=== PATIENT | male | born 1990 | race Caucasian/White ===

== ENCOUNTER 2019-04-05 18:22 | Emergency (ER) | payer OTHER, SELFPAY ==
[2019-04-05] VITALS (29 sets, daily range): BP systolic 124–150; BP diastolic 78–92; PULSE 76–87; RESP 12–24; TEMP 36.7; O2SAT 95–99
--- NOTE | 2019-04-05 18:43 | ED.GENADUL_ITS ---
Discharge Plan Disposition Patient Disposition: HOME Condition: Improving Discharge Details Chief Complaint: Chest Pain Clinical Impression: GERD (gastroesophageal reflux disease) Primary Care Provider: PRATIBHA BROWN ED Provider: Jasvir Elizalde Home Meds and New Rx's Prescriptions: New ranitidine HCl [Zantac] 150 mg tablet 150 mg PO BID Qty: 20 RF: 0 Discontinued ibuprofen 200 MG tablet 600 mg PO PRN PRNRF: 0 Discharge Instructions Instructions: Gastroesophageal Reflux Disease (ED) Additional Instructions: Please stop taking ibuprofen and if needed you may take Tylenol as needed for any further discomfort for your dental procedure. Please return immediately for any new or significant worsening of symptoms otherwise follow-up with your primary care provider for reassessment of your chest pain. Stand Alone Forms: Work Release Referrals: PRATIBHA BROWN [Primary Care Provider] - Discharge Data Discharge Date/Time-TO BE ENTERED AT DEPARTURE: 04/05/19 23:25 Medical Decision Making Patient presenting the emergency department for chief complaint of chest pain. Patient states that this started yesterday around noon and has persisted since. He did state that he took some Pepto-Bismol thinking it may be gastritis which provided some relief but has been persistent since. He does report that he recently did have a dental procedure performed on Saturday and has been taking 800 mg of ibuprofen every 6 hours [id number] to help with pain control. Patient denies any pain or discomfort at this time but just states a dull aching pressure in the center of his chest. Physical exam is unremarkable, patient is stable nontoxic in appearance, not diaphoretic no specific findings noted. Plan to check labs including EKG and pending results patient given Zantac and lidocaine /Maalox. 183 Review of EKG with attending physician Dr. Adelso Ramirez shows sinus rhythm, rate of 83, nonspecific ST changes noted in 3 and aVF but no STEMI criteria is met or noted EKG is otherwise nondiagnostic. Review of initial labs show no leukocytosis and unremarkable CBC, CMP shows a slightly low potassium, elevated anion gap, creatinine 1.41, and mildly low calcium. Initial troponin is negative and otherwise nondiagnostic labs. Review of chest x-ray shows no acute findings noted. Patient reassessed and did state some improvement of symptoms after medication was given. Given patient's recent wisdom teeth removal with taking ibuprofen on a scheduled basis and high dose with low p.o. intake is causing some gastritis. Repeat EKG reviewed with Dr. Wilkinson 2300 shows sinus rhythm, rate of 77, continues with nonspecific ST changes in V3 and somewhat normalized and aVF but otherwise nondiagnostic, no STEMI. Patient again reassessed and has no further symptoms. Given this I feel that this is more likely GERD/gastritis secondary to ibuprofen usage. Patient placed up on ranitidine given some nonspecific EKG changes patient was strongly encouraged to follow-up with his primary care provider for further reassessment but otherwise I do feel the patient is able to be safely discharged. After discussion of diagnosis and plan of care patient has no further needs, questions, or concerns and states clear understanding to return to the emergency department for any worsening symptoms. HPI General Mode of arrival: ambulatory . Date/Time Provider Initiated Documentation: 04/05/19 18:23 . Limitations to Documentation: no limitations . Information obtained by: patient, family and RN notes reviewed . History of Present Illness 28 year old M presents to the emergency department with the chief complaint of Chest pain, described as moderate, with intensity rated at 7. Quality is described as dull and other (Pressure), and is localized to the chest. Patient started experiencing this hour(s) (30) No relieving factors improve symptom(s), No exacerbating factors reported . Patient notes no other symptoms.. Patient did receive the following treatments prior to arrival, none Related Data Home Medications Medication Instructions Recorded Confirmed ranitidine HCl [Zantac] 150 mg PO BID #20 tab 04/05/19 Previous Rx's Medication Instructions Recorded ranitidine HCl [Zantac] 150 mg PO BID #20 tab 04/05/19 Allergies Allergy/AdvReac Type Severity Reaction Status Date / Time No Known Allergies Allergy Unverified 04/05/19 18:31 General Stated Complaint: Chest Pain ANGELA: 3 Review of Systems Constitutional Constitutional: Denies chills, Denies fever(s) and Denies malaise Cardiovascular Cardiovascular: Reports as per HPI, Reports chest pain, Denies chest pain with activity, Denies syncope, Denies irregular heart rhythm, Denies palpitations and Denies dyspnea Respiratory Respiratory: Denies cough, Denies hemoptysis and Denies dyspnea Gastrointestinal Gastrointestinal: Denies abdominal pain, Reports belching, Reports heartburn, Denies nausea and Denies vomiting Neurologic Neurologic: Denies syncope Psychiatric Psychiatric: Denies anxiety Endocrine Endocrine: Denies cold intolerance, Denies heat intolerance and Denies palpitations [facility] Social History Smoking/Tobacco Use Status: Never Drug use: Never Do you feel safe at home: Yes Exam Const General: cooperative, healthy appearing, comfortable, no acute distress, not diaphoretic and not ill appearing Nutritional Appearance: average body habitus Orientation: alert, awake and oriented x3 Limitations: mental status not altered Neck Neck: normal visual inspection, full ROM, trachea midline, supple and no anterior neck swelling Thyroid: thyroid normal Carotids: normal carotid upstroke and no bruits Chest Chest: normal inspection of the chest Resp Effort & Inspection: normal respiratory effort and able to speak in complete sentences Auscultation: clear to auscultation bilaterally Cardio Jugular venous pressure: no JVD Palpation: normal PMI Rate: regular rate Rhythm: regular rhythm Heart Sounds: S1 normal, S2 normal, no click, no gallops, no murmurs and no rubs Bruits: no abdominal aortic bruits and no carotid bruits Pulses: radial pulses present bilaterally 2+ GI Inspection: normal to inspection Palpation: soft, no aortic enlargement, no pulsatile masses and nontender Auscultation: normal bowel sounds Skin General skin exam: no rashes or lesions noted Neuro General: alert, awake, oriented x3, tone normal and moves all extremities Course Vital Signs Vital signs: Vital Signs Temperature 36.7 C 04/05/19 18:25 Pulse 87 04/05/19 18:25 Respiratory Rate 04/05/19 18:25 Blood Pressure 150/88 H 04/05/19 18:25 Pulse Oximetry 97 04/05/19 18:25 Temperature 36.7 C 04/05/19 18:25 Temperature Source Skin 04/05/19 18:25 Pulse 87 04/05/19 18:25 Respiratory Rate 04/05/19 18:25 Respiratory Effort Non-Labored 04/05/19 18:30 Blood Pressure 150/88 H 04/05/19 18:25 Blood Pressure Position Sitting 04/05/19 18:25 Pulse Oximetry 97 04/05/19 18:25 Oxygen Delivery Method Room Air 04/05/19 18:25 Oxygen Flow Rate 0 04/05/19 18:25
[2019-04-05 18:49] LABS: Abs Immature Grans 0.01 k/cumm (0.0-0.09); Absolute Basophil Count 0.03 k/cumm (0.0-0.2); Absolute Eosinophil Count 0.01 k/cumm (0.0-0.7); Absolute Lymphocyte Count 1.28 k/cumm (1.2-3.4); Absolute Monocyte Count 1.03 k/cumm (0.11-0.7); Absolute Neutrophil Count 3.33 k/cumm (1.2-6.7); Basophils % 0.5; Eosinophils % 0.2; HCT 45.2 % (40.0-50.0); HGB 15.6 g/dL (13.5-17.5); Immature Grans % 0.2; Lymphocytes % 22.5; Mean Corp. HGB Concentration 34.5 g/dL (32.0-36.0); Mean Corpuscular Hemoglobin 29.3 pg (27.0-33.0); Mean Corpuscular Volume 84.8 fL (80-95); Mean Platelet Volume 9.9 fL (8.0-11.0); Monocytes % 18.1; Neutrophils % 58.5; Platelet Count 196 x1000/uL (130-400); RBC 5.33 m/cumm (4.50-6.00); RBC Distribution Width 12.5 % (11.8-14.1); White Blood Cell Count 5.69 k/cumm (4.4-10.8)
[2019-04-05 19:06] LABS: ALT 29 U/L (16-63); AST 15 U/L (15-37); Alkaline Phosphatase 63 U/L (46-116); Anion Gap 12.2 mmol/L (3-11); BUN 14 mg/dL (7-18); Bilirubin, Total 0.7 mg/dL (0.2-1.0); CO2 27.8 mmol/L (21.0-32.0); CREATININE 1.41 mg/dL (0.70-1.30); Calcium 8.4 mg/dL (8.5-10.1); Chloride 99 mmol/L (98-107); Estimated GFR 59.02 (mL/min/1.73m2); Glucose 97 mg/dL (70-100); Magnesium 1.9 mg/dL (1.8-2.4); Potassium 3.2 mmol/L (3.5-5.1); Sodium 139 mmol/L (136-145); Total Protein 7.7 g/dL (6.4-8.2)
[2019-04-05 19:09] LABS: Troponin I < 0.05 ng/mL (0.00-0.06)
--- NOTE | 2019-04-05 19:45 | DI.RAD_ITS ---
EXAM: XR CHEST 2V PA LATERAL CLINICAL HISTORY: chest pain. TECHNIQUE: 2D digital imaging was performed. COMPARISON: No exams were available for comparison FINDINGS: LUNGS: Clear. No pleural abnormality seen. HEART: Normal. MEDIASTINUM: Normal. OTHER FINDINGS:Normal. IMPRESSION: No acute pulmonary findings.
[2019-04-05] MEDS: Normal Saline 1,000 ML 1000 ML IV (20:01)
[2019-04-05] MEDS: POTASSIUM CHLORIDE 20 MEQ, POTASSIUM CHLORIDE 10 MEQ 30 MEQ PO (20:02)
--- NOTE | 2019-04-05 20:19 | DI.VRAD_ITS ---
PROCEDURE INFORMATION: Exam: XR Chest, 2 Views Exam date and time: 04/05/2019 6:42 PM Clinical history: 28 years old, male; Chest pressure; Patient HX: Chest pain and pressure TECHNIQUE: Imaging protocol: XR of the chest Views: 2 views. COMPARISON: No relevant prior studies available. FINDINGS: Lungs: Unremarkable. No consolidation. Pleural space: Unremarkable. No pleural effusion. No pneumothorax. Heart/Mediastinum: Unremarkable. No cardiomegaly. Bones/joints: Unremarkable. Other findings: . IMPRESSION: Dictated and Authenticated by: Juliana Sarah MD. Ordering:ALEJO Tay MD
[2019-04-05 22:36] LABS: Troponin I < 0.05 ng/mL (0.00-0.06)
== END 2019-04-05 23:25 | disposition home or self-care (01) ==
PROVIDERS: Emergency Provider Nurse Practitioner Family; PCP Family Medicine
DX: K21.9 Gastro-esophageal reflux disease without esophagitis (principal)
CPT/HCPCS: 36415; 80053; 93005; 96360; 99285; 71046; 83735; 84484; 85025; 93010

== ENCOUNTER 2019-07-21 16:53 | Outpatient (REF) | payer OTHER, SELFPAY ==
--- NOTE | 2019-07-21 16:00 | SKI_PTH ---
PATIENT: Jose Elias Vasquez LOC: [facility] U#:[id number] AGE/SX: 28/M ROOM: RE07/21/[address]: Paco Lizarraga : 1990 BED: DIS: 07/21/2019 SPEC #: [id number] RECD: 07/21/19 18:25 STATUS: RUBÉN RETina #: [id number] PETER: 07/21/19 16:[address]: Paco Lizarraga DEPT: Surgical Specimen RECD BY: Diamond Bosch Tissues: 1 - SKIN BIOPSY(SHAVE/PUNCH) 2 - SKIN BIOPSY(SHAVE/PUNCH) Procedures: SKIN LEVEL 4 Comments: [id number]
== END 2019-07-21 17:13 ==
LOC: NCHCN 16:53
PROVIDERS: PCP Nurse Practitioner Family; Visit Provider Nurse Practitioner Family
DX: D18.01 Hemangioma of skin and subcutaneous tissue (principal)
CPT/HCPCS: 88305

== ENCOUNTER 2023-02-04 11:29 | Outpatient (REF) | payer BC, SELFPAY ==
[2023-02-04 15:18] LABS: Abs Immature Grans 0.01 10^3/uL (0.0-0.06); Absolute Basophil Count 0.06 10^3/uL (0.0-0.2); Absolute Eosinophil Count 0.09 10^3/uL (0.0-0.7); Absolute Lymphocyte Count 1.43 10^3/uL (1.2-3.4); Absolute Monocyte Count 0.36 10^3/uL (0.1-0.8); Absolute Neutrophil Count 2.96 10^3/uL (1.2-6.7); Basophils % 1.2; Eosinophils % 1.8; HCT 46.5 % (40.0-50.0); HGB 15.9 g/dL (13.5-17.5); Immature Grans % 0.2; Lymphocytes % 29.1; MCH 29.8 pg (27.0-33.0); MCHC 34.2 % (32.0-36.0); MCV 87 fL (80-95); MPV 10.8 fL (8.0-11.0); Monocytes % 7.3; Neutrophils % 60.4; Platelet Count 233 10^3/uL (130-400); RBC 5.34 10^6/uL (4.36-5.78); RDW 11.8 % (11.8-14.1); RDW-SD 37.5 fL; WBC 4.91 10^3/uL (4.4-10.8)
[2023-02-04 16:01] LABS: ALT 46 U/L (16-63); AST 17 U/L (15-37); Alkaline Phosphatase 61 U/L (46-116); Anion Gap 5.2 mmol/L (3-11); BUN 14 mg/dL (7-18); Bilirubin, Total 0.9 mg/dL (0.2-1.0); CO2 29.8 mmol/L (21.0-32.0); CREATININE 1.2 mg/dL (0.70-1.30); Calcium 8.7 mg/dL (8.5-10.1); Chloride 107 mmol/L (98-107); Estimated GFR 81.38 (mL/min/1.73m2); Glucose 101 mg/dL (74-106); Potassium 4.2 mmol/L (3.5-5.1); Sodium 142 mmol/L (136-145); Total Protein 6.9 g/dL (6.4-8.2); Vitamin B12 479 pg/mL (193-986)
== END 2023-02-04 11:30 | disposition home or self-care (01) ==
LOC: LBN 11:29
PROVIDERS: Visit Provider Nurse Practitioner Family
DX: R20.2 Paresthesia of skin (principal)
CPT/HCPCS: 80053; 82607; 84443; 85025

== ENCOUNTER 2023-02-05 16:14 | Outpatient (REF) | payer BC, SELFPAY ==
[2023-02-05 20:34] LABS: Calculated LDL 102 mg/dL (<100); Cholesterol 156 mg/dL (<200); HDL Cholesterol 46 mg/dL (40-60); Triglyceride 43 mg/dL (<150)
== END 2023-02-05 16:15 | disposition home or self-care (01) ==
LOC: NCHCN 16:14
PROVIDERS: Visit Provider Nurse Practitioner Family
DX: Z00.00 Encounter for general adult medical examination without abnormal findings (principal); Z13.220 Encounter for screening for lipoid disorders
CPT/HCPCS: 80061

== ENCOUNTER 2025-02-11 14:10 | Outpatient (REF) | payer BC, SELFPAY ==
[2025-02-11 14:58] LABS: ALT 44 U/L (16-63); AST 25 U/L (15-37); Albumin 4.4 g/dL (3.4-5.0); Alkaline Phosphatase 78 U/L (46-116); Anion Gap 4.7 mmol/L (3-11); BUN 16 mg/dL (7-18); Bilirubin, Total 0.9 mg/dL (0.2-1.0); CO2 29.3 mmol/L (21.0-32.0); Calcium 8.9 mg/dL (8.5-10.1); Calculated LDL 96 mg/dL (<100); Chloride 104 mmol/L (98-107); Cholesterol 153 mg/dL (<200); Estimated GFR 80.38 (mL/min/1.73m2); Glucose 99 mg/dL (74-106); HDL Cholesterol 47 mg/dL (>or=40); Potassium 4.4 mmol/L (3.5-5.1); Sodium 138 mmol/L (136-145); Total Protein 7.9 g/dL (6.4-8.2); Triglyceride 50 mg/dL (<150)
== END 2025-02-11 14:11 | disposition home or self-care (01) ==
LOC: NCHCN 14:10
PROVIDERS: PCP Nurse Practitioner Family; Visit Provider Nurse Practitioner Family
DX: Z13.220 Encounter for screening for lipoid disorders (principal); Z00.00 Encounter for general adult medical examination without abnormal findings; Z13.1 Encounter for screening for diabetes mellitus
CPT/HCPCS: 80053; 80061